=== PATIENT | female | born 1985 | race Hispanic/Latino ===

== ENCOUNTER 2023-06-09 15:59 | Emergency (ER) | payer OTHER, SELFPAY ==
[2023-06-09 16:08] VITALS: BP 147/86
[2023-06-09 16:24] LABS: Glucose - Point of Care 226 mg/dl (70-99)
[2023-06-09 16:29] LABS: % Basophils 0.5 % (0-2); % Eosinophils 7.4 % (0-6); % Immature Granulocytes 0.4 % (0-0.5); % Lymphocytes 28.3 % (20.5-51.1); % Neutrophils 56.4 % (42.2-75.2); Absolute Basophils 0.1 10^3/uL (0-0.2); Absolute Immature Granulocytes 0.1 10^3/uL (0-0.05); Absolute Lymphocytes 3.8 10^3/uL (1.2-3.4); Absolute Neutrophils 7.6 10^3/uL (1.4-6.5); Hematocrit 35.1 % (37.0-47.0); Hemoglobin 11.4 g/dL (12.0-16.0); Mean Corp Hgb Conc. 32.5 g/dL (33.0-37.0); Mean Corpuscular Hgb 25.5 pg (27.0-31.0); Mean Corpuscular Volume 78.5 fL (81.0-99.0); Mean Platelet Volume 9.7 fL (7.4-10.4); Nucleated Red Blood Cells % 0 %; Platelet Count 393 10^3/uL (130-400); Red Blood Cell Count 4.47 10^6/uL (4.20-5.40); Red Cell Dist. Width 19.5 % (11.5-14.5); White Blood Cell Count 13.5 10^3/uL (4.8-10.8)
[2023-06-09 16:57] LABS: ALT (SGPT) 29 U/L (0-35); AST (SGOT) 27 U/L (14-36); Albumin 3.4 g/dl (3.5-5.0); Alkaline Phosphatase 86 U/L (38-126); Blood Urea Nitrogen 5 mg/dl (7-17); Calcium 9.2 mg/dl (8.4-10.2); Carbon Dioxide 21 mmol/L (22-30); Chloride 104 mmol/L (98-107); Glucose 248 mg/dl (70-99); Potassium 4.1 mmol/L (3.5-5.1); Sodium 134 mmol/L (135-145); Total Bilirubin 0.3 mg/dl (0.2-1.3); Total Protein 6.4 g/dl (6.3-8.2); eGFR > 60.00
[2023-06-09 17:16] VITALS: BMI 43.3
--- NOTE | 2023-06-09 17:32 | ED.GENMED ---
History of Present Illness
General
Chief Complaint: Blood Sugar Problem
Source: patient and family
Exam Limitations: none
Time Seen by Provider: 06/09/23 16:54
Nursing documentation reviewed up to this point in time: agreed with
Travel History
Have you had any contact with someone who has COVID-19?: No
Do you have any symptoms of coronavirus? Fever > 100 degrees, chills, cough, shortness of breath, sore throat, loss of taste or smell, muscle aches, or headache?: No
History of Present Illness
History of Present Illness:
37-year-old female send pending diabetic hypertensive, fibromyalgia presents with few days of bodyaches chills cough pain into her bones, no vomiting no chest pain, nondrinker non-smoker sugars elevated today
Past History
Past History
ED Past Medical History: GERD (Gastritis, hiatal hernia), HTN, Other (Polycystic ovarian syndrome) and Other (Fibromyalgia)
ED Past Surgical History: Other (Laparoscopy)
Social History
Tobacco: Non-smoker
Alcohol: None
Drug: None
Personal:
Living: with family
Employment: Not employed
Family History
Family History: Diabetes and Other (Noncontributory)
Review of Systems
Review of Systems
All Other Systems: ROS reviewed and negative except as documented in HPI and ROS
Constitutional: Reports fatigue and chills
Respiratory: Reports cough
Cardiac: Reports no symptoms
ABD/GI: Reports no symptoms
: Reports no symptoms
Musculoskeletal: Reports joint pain, muscle pain and muscle stiffness
Skin: Reports no symptoms
Neurological: Denies dizzy
Endocrine: Reports no symptoms
Phy Exam
Physical Exam
Physical Exam:
Physical Exam
General: Nontoxic 37 female
Neck: Lips are moist
Heart: Regular
Lungs: No wheeze
Abdomen: Not tender
Neuro: alert and oriented. no focal neurological deficits
Skin: no rash
Psychiatric: well kept. interactive and cooperative
Extremities: no edema. No calf pain
Course
Orders/Labs/Results
Orders:
Orders
06/09/23 16:22
CMP [Comprehensive Metabolic Panel] Urgent
Complete Blood Count/With Diff Urgent
Creatine Phosphokinase Urgent
Comment: ADD ON
06/09/23 17:29
0.9% Sodium Chloride 1000 ml [Nss] 1,000 ml IV BOLUS
Acetaminophen [Tylenol] 1,000 mg PO NOW STA
Ketorolac [Toradol] 15 mg IV NOW STA
06/09/23 17:30
CR Chest - 2 Views Urgent
Comment:
Reason For Exam: body aches
06/09/23 17:35
Electrocardiogram (*1) Urgent
Reason for Study: Shortness of Breath
EKG- Treatment ONCE
06/09/23 17:36
Add On- LAB Urgent
Tests Added?: cpk
06/09/23 17:54
COVID-19 Antigen Urgent
Source: Nasal Swab
Influenza A+B Rapid Molecular Urgent
RJ Source: Nasal Swab
Specimen Description:
06/09/23 19:36
Bedside Glucose- Treatment ONCE
Abnormal Lab Results
06/09/23 06/09/23 06/09/23
16:22 16:23 19:40
WBC 13.5 H 10^3/uL
(4.8-10.8)
Hgb 11.4 L g/dL
(12.0-16.0)
Hct 35.1 L %
(37.0-47.0)
MCV 78.5 L fL
(81.0-99.0)
MCH 25.5 L pg
(27.0-31.0)
MCHC 32.5 L g/dL
(33.0-37.0)
RDW 19.5 H %
(11.5-14.5)
Abs Immat Gran (auto) 0.1 H 10^3/uL
(0-0.05)
Absolute Neuts (auto) 7.6 H 10^3/uL
(1.4-6.5)
Absolute Lymphs (auto) 3.8 H 10^3/uL
(1.2-3.4)
Absolute Monos (auto) 1.0 H 10^3/uL
(0.1-0.6)
Absolute Eos (auto) 1.0 H 10^3/uL
(0-0.7)
Eosinophils % 7.4 H %
(0-6)
Sodium 134 L mmol/L
(135-145)
Carbon Dioxide 21 L mmol/L
(22-30)
BUN 5 L mg/dl
(7-17)
Creatinine 0.5 L mg/dL
(0.6-1.0)
Glucose 248 H mg/dl
(70-99)
Creatine Kinase 150 H U/L
(30-135)
Albumin 3.4 L g/dl
(3.5-5.0)
POC Glucose 226 H mg/dl 100 H mg/dl
(70-99) (70-99)
06/09/23 16:22
06/09/23 16:22
Vital Signs
Initial and Last Documented VS:
Initial Vital Signs
Temp Pulse Resp BP Pulse Ox
98.9 F 104 18 147/86 99
06/09/23 16:08 06/09/23 16:08 06/09/23 16:08 06/09/23 16:08 06/09/23 16:08
Last Documented Vital Signs
Temp Pulse Resp BP Pulse Ox
98.9 F 90 18 118/74 100
06/09/23 16:08 06/09/23 18:15 06/09/23 18:15 06/09/23 18:15 06/09/23 18:15
MDM/Problems Addressed
Differential Diagnosis Includes:
Viral syndrome, fibromyalgia flare pneumonia influenza COVID DKA
MDM/Problems Addressed:
Body aches
Chronic conditions affecting care:
Fibromyalgia
Chronic conditions affecting care: DM and HTN
Acute Exacerbation and/or Progression of Chronic Illness: DM and HTN
*Radiology
Radiology exam reviewed: preliminary read by ED provider
*Pulse Oximetry
Patient hypoxic: no
*EKG
Interpreted by ED Provider?: Yes
Interpretation: abnormal
Comparison EKG: no comparison EKG present
Heart Rate: 78
Rate: normal
Rhythm: sinus
Ischemia: non-specific ST changes
*Blasting Worker Interpretation
Rate: normal
Interpretation: normal
Heart Rate: 78
Rhythm: sinus
*Critical Care Note
Total Time (30-74mins, 75-104mins- exclusive of procedures): Not Applicable
Update Note
Update Note:
7:45 PM labs noted anion gap 9 negative viral swabs chest x-ray noted report noted CPK noted
Patient states he is feeling better, no vomiting, will repeat her blood sugar
ED Attending Note
-
Portions of this chart may have been created with voice recognition software.� Occasional wrong word or��sound alike� substitutions may have occurred due to the inherent limitations of voice recognition software.
Discharge Plan
Departure
Patient Disposition: Home (Routine Discharge)
Date of Disposition: 06/09/23
Time of Disposition: 19:47
Patient with high blood pressure during this ER visit?: No
Condition: Good
Discharge Problem:
Diabetes
Instructions: Diabetes Type 1, Adult (DC)
Prescriptions:
No Action
citalopram 20 MG tablet
40 mg PO DAILY
bupropion HCl 150 MG tablet extended release 24 hr
150 mg PO DAILY
metoprolol tartrate 25 MG tablet
25 mg PO DAILY
Ferrous Gluconate
324 mg PO TID
Vitamin D3
5,000 unit PO DAILY
diclofenac sodium 75 MG tablet,delayed release (DR/EC)
50 mg PO DAILY PRN (Reason: pain)
sucralfate [Carafate] 1 GM/10 ML suspension
1 gm PO ACHS Qty: 560 1RF
Referrals:
NONE,* [Active] -
Activity Restrictions/Additional Instructions:
Drink plenty of fluids, Tylenol as needed for body aches,
Interventions
Interventions:
*Risk Screen - Suicide Last Done: 06/09/23 17:16
*General Assessment Last Done: 06/09/23 16:08
*Neglect/Abuse Screening Last Done: 06/09/23 17:16
*ED COVID-19 Vaccine History Last Done: 06/09/23 16:08
ED- Neurological Assessment Last Done: 06/09/23 17:16
[2023-06-09] MEDS: NSS 1000 IV (17:48)
[2023-06-09] MEDS: TORADOL 15 MG IV (17:48)
[2023-06-09] MEDS: TYLENOL 1000 MG PO (17:48)
[2023-06-09 18:15] VITALS: BP 118/74
[2023-06-09 18:19] LABS: COVID-19 Antigen Negative (Negative)
[2023-06-09 18:33] LABS: Creatine Phosphokinase 150 U/L (30-135)
[2023-06-09 19:41] LABS: Glucose - Point of Care 100 mg/dl (70-99)
== END 2023-06-09 20:09 | disposition home or self-care (01) ==
LOC: EMR 15:59
PROVIDERS: Emergency Medicine; EMERGENCY PHYSICIAN Emergency Medicine; FAMILY PHYSICIAN Family Medicine
DX: E11.9 Type 2 diabetes mellitus without complications (principal); I10 Essential (primary) hypertension; M79.7 Fibromyalgia; K21.9 Gastro-esophageal reflux disease without esophagitis; E28.2 Polycystic ovarian syndrome; Z83.3 Family history of diabetes mellitus; Z87.19 Personal history of other diseases of the digestive system
CPT/HCPCS: 99283; 96374; 96361; 71046; 80053; 82550; 82962; 85025; 87502; 87811; 93005

== ENCOUNTER → 2023-09-29 11:26 | Outpatient (REF) | payer OTHER, SELFPAY ==
[2023-09-29 13:13] LABS: Hepatitis B Surface Antibody Positive
== END ==
LOC: OHS 11:26
PROVIDERS: ATTENDING PHYSICIAN Nurse Practitioner Family
DX: Z23 Encounter for immunization (principal)
CPT/HCPCS: 86480; 86706; 86787

== ENCOUNTER 2024-07-08 18:03 | Emergency (ER) | payer OTHER, SELFPAY ==
[2024-07-08 18:11] VITALS: BP 140/80
[2024-07-08 18:45] LABS: % Basophils 0.6 % (0-2); % Eosinophils 2.6 % (0-6); % Immature Granulocytes 0.5 % (0-0.5); % Lymphocytes 14.1 % (20.5-51.1); % Monocytes 10.2 % (1.7-9.3); Absolute Basophils 0.1 10^3/uL (0-0.2); Absolute Eosinophils 0.3 10^3/uL (0-0.7); Absolute Immature Granulocytes 0.1 10^3/uL (0-0.05); Absolute Lymphocytes 1.4 10^3/uL (1.2-3.4); Absolute Neutrophils 7.3 10^3/uL (1.4-6.5); Hematocrit 35.2 % (37.0-47.0); Hemoglobin 11.2 g/dL (12.0-16.0); Mean Corp Hgb Conc. 31.8 g/dL (33.0-37.0); Mean Corpuscular Hgb 24.2 pg (27.0-31.0); Mean Corpuscular Volume 76.2 fL (81.0-99.0); Mean Platelet Volume 10.1 fL (7.4-10.4); Nucleated Red Blood Cells % 0 %; Platelet Count 380 10^3/uL (130-400); Red Blood Cell Count 4.62 10^6/uL (4.20-5.40); Red Cell Dist. Width 16.5 % (11.5-14.5); White Blood Cell Count 10.1 10^3/uL (4.8-10.8)
[2024-07-08 18:49] LABS: HCG, Serum Qualitative Screen Negative
[2024-07-08 18:53] LABS: COVID-19 Antigen Negative (Negative)
[2024-07-08 18:58] LABS: ALT (SGPT) 29 U/L (0-35); AST (SGOT) 27 U/L (14-36); Albumin 4.1 g/dl (3.5-5.0); Alkaline Phosphatase 91 U/L (38-126); Blood Urea Nitrogen 3 mg/dl (7-17); Calcium 9.4 mg/dl (8.4-10.2); Carbon Dioxide 22 mmol/L (22-30); Chloride 101 mmol/L (98-107); Glucose 117 mg/dl (70-99); Sodium 133 mmol/L (135-145); Total Bilirubin 0.7 mg/dl (0.2-1.3); Total Protein 7.1 g/dl (6.3-8.2); eGFR > 60.00
--- NOTE | 2024-07-08 19:59 | ED.GENMED ---
History of Present Illness
General
Chief Complaint: Fever
Source: patient
Exam Limitations: none
Time Seen by Provider: 07/08/24 19:16
Nursing documentation reviewed up to this point in time: agreed with
History of Present Illness
History of Present Illness:
Pt presents to ED secondary to 4-day history of intermittent fever, posterior headache, and body ache, along with decreased appetite. Denies sore throat. Denies coughing. Denies dizziness. Denies vomiting or diarrhea. Denies rash. Denies neck
pain. 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 Denies recent travel.
Past History
Past History
ED Past Medical History: GERD (Gastritis, hiatal hernia), HTN, Other (Polycystic ovarian syndrome) and Other (Fibromyalgia)
ED Past Surgical History: Other (Laparoscopy)
Social History
Tobacco: Non-smoker
Alcohol: None
Drug: None
Personal:
Living: with family
Employment: Not employed
Family History
Family History: Diabetes and Other (Noncontributory)
Review of Systems
Review of Systems
Allergies reviewed?: Yes
All Other Systems: ROS reviewed and negative except as documented in HPI and ROS
Constitutional: Reports fever
EENT: Reports no symptoms; Denies sore throat
Respiratory: Reports no symptoms; Denies cough or trouble breathing
Cardiac: Reports no symptoms
ABD/GI: Reports no symptoms; Denies abdominal pain, vomiting or diarrhea
Musculoskeletal: Reports muscle pain
Skin: Reports no symptoms
Neurological: Reports headache
Phy Exam
Physical Exam
Physical Exam:
Physical Exam
General: no apparent distress, not acutely ill. afebrile
Head: nc/at. eomi
Neck: supple. no meningeal signs. normal posterior pharynx
Heart: s1/s2 regular rate and rhythm
Lungs: no acute respiratory distress. clear bilaterally
Abdomen: normal bowel sounds. not tender.
Neuro: alert and oriented x 3. no focal neurological deficits
Skin: no rash
Psychiatric: well kept. interactive and cooperative
Extremities: no edema. no calf tenderness.
Course
Orders/Labs/Results
Orders:
Orders
07/08/24 18:14
Test Result ONCE
07/08/24 18:24
COVID-19 Antigen Urgent
Source: Nasal Swab
Complete Blood Count/With Diff Urgent
Comprehensive Metabolic Panel Urgent
HCG, Serum Qualitative Screen Urgent
Influenza A+B Rapid Molecular Urgent
JR Source: Nasal Swab
Specimen Description:
07/08/24 19:59
Oseltamivir Phosphate [Tamiflu] 75 mg PO NOW STA
Abnormal Lab Results
07/08/24
18:24
Hgb 11.2 L g/dL
(12.0-16.0)
Hct 35.2 L %
(37.0-47.0)
MCV 76.2 L fL
(81.0-99.0)
MCH 24.2 L pg
(27.0-31.0)
MCHC 31.8 L g/dL
(33.0-37.0)
RDW 16.5 H %
(11.5-14.5)
Abs Immat Gran (auto) 0.1 H 10^3/uL
(0-0.05)
Absolute Neuts (auto) 7.3 H 10^3/uL
(1.4-6.5)
Absolute Monos (auto) 1.0 H 10^3/uL
(0.1-0.6)
Lymphocytes % 14.1 L %
(20.5-51.1)
Monocytes % 10.2 H %
(1.7-9.3)
Sodium 133 L mmol/L
(135-145)
BUN 3 L mg/dl
(7-17)
Glucose 117 H mg/dl
(70-99)
07/08/24 18:24
07/08/24 18:24
Vital Signs
Initial and Last Documented VS:
Initial Vital Signs
Temp Pulse Resp BP Pulse Ox
98.4 F 105 18 140/80 97
07/08/24 18:11 07/08/24 18:11 07/08/24 18:11 07/08/24 18:11 07/08/24 18:11
Last Documented Vital Signs
Temp Pulse Resp BP Pulse Ox
98.3 F 96 18 122/81 97
07/08/24 20:45 07/08/24 20:45 07/08/24 20:45 07/08/24 20:45 07/08/24 20:45
MDM/Problems Addressed
MDM/Problems Addressed:
History and exam, along with nasal swab consistent with symptoms secondary to influenza. As patient states that her symptoms have worsened overall, along with history of diabetes, after discussion of potential side effects, decision made to start
the patient on Tamiflu, along with PCP follow-up as an outpatient. Patient otherwise is afebrile, hemodynamically stable, neurologically intact, and without significant distress, at time of discharge, to the care of her family
*Critical Care Note
Total Time (30-74mins, 75-104mins- exclusive of procedures): Not Applicable
ED Attending Note
-
Portions of this chart may have been created with voice recognition software.� Occasional wrong word or��sound alike� substitutions may have occurred due to the inherent limitations of voice recognition software.
Discharge Plan
Departure
Patient Disposition: Home (Routine Discharge)
Date of Disposition: 07/08/24
Time of Disposition: 19:59
Patient with high blood pressure during this ER visit?: Yes
Condition: Fair
Discharge Problem:
Influenza
Instructions: Flu in adults - Discharge instructions, Flu in adults - ED discharge instructions
Prescriptions:
New
oseltamivir [Tamiflu] 75 mg capsule
75 mg PO BID 5 Days Qty: 9 0RF
No Action
citalopram 20 MG tablet
40 mg PO DAILY
bupropion HCl 150 MG tablet extended release 24 hr
150 mg PO DAILY
metoprolol tartrate 25 MG tablet
25 mg PO DAILY
Ferrous Gluconate
324 mg PO TID
Vitamin D3
5,000 unit PO DAILY
diclofenac sodium 75 MG tablet,delayed release (DR/EC)
50 mg PO DAILY PRN (Reason: pain)
sucralfate [Carafate] 1 GM/10 ML suspension
1 gm PO ACHS Qty: 560 1RF
Stand Alone Forms: Return to Work
Activity Restrictions/Additional Instructions:
As discussed, please follow-up with your primary care physician for reevaluation. Your prescription has been sent electronically to [facility] pharmacy in [place].
Interventions
Interventions:
*Risk Screen - Suicide Last Done: 07/08/24 18:14
*General Assessment Last Done: 07/08/24 18:14
*Neglect/Abuse Screening Last Done: 07/08/24 18:14
*Nursing Disposition Last Done: 07/08/24 20:45
ED- Neurological Assessment Last Done: 07/08/24 20:45
ED-Skin Assessment Last Done: 07/08/24 20:45
Discharge Date and Time
Discharge Date/Time: 07/08/24 20:47
Print Language: CROATIAN
[2024-07-08] MEDS: TAMIFLU 75 MG PO (20:34)
[2024-07-08 20:45] VITALS: BP 122/81
== END 2024-07-08 20:47 | disposition home or self-care (01) ==
LOC: EMR 18:03
PROVIDERS: EMERGENCY PHYSICIAN Emergency Medicine; FAMILY PHYSICIAN Internal Medicine
DX: J10.1 Influenza due to other identified influenza virus with other respiratory manifestations (principal); I10 Essential (primary) hypertension; Z11.52 Encounter for screening for COVID-19
CPT/HCPCS: 99283; 80053; 84703; 85025; 87502; 87811

== ENCOUNTER 2024-10-02 18:02 | Emergency (ER) | payer OTHER, SELFPAY ==
[2024-10-02] VITALS (8 sets, daily range): BP systolic 114–144; BP diastolic 73–86; PULSE 100–116
[2024-10-02 18:23] LABS: % Basophils 0.5 % (0-2); % Eosinophils 4.2 % (0-6); % Immature Granulocytes 0.4 % (0-0.5); % Lymphocytes 19.7 % (20.5-51.1); % Monocytes 4.9 % (1.7-9.3); % Neutrophils 70.3 % (42.2-75.2); Absolute Basophils 0.1 10^3/uL (0-0.2); Absolute Eosinophils 0.7 10^3/uL (0-0.7); Absolute Immature Granulocytes 0.1 10^3/uL (0-0.05); Absolute Lymphocytes 3.4 10^3/uL (1.2-3.4); Absolute Monocytes 0.9 10^3/uL (0.1-0.6); Absolute Neutrophils 12.2 10^3/uL (1.4-6.5); Hematocrit 31.6 % (37.0-47.0); Mean Corp Hgb Conc. 31.6 g/dL (33.0-37.0); Mean Corpuscular Hgb 23.1 pg (27.0-31.0); Mean Platelet Volume 9.4 fL (7.4-10.4); Nucleated Red Blood Cells % 0 %; Platelet Count 434 10^3/uL (130-400); Red Blood Cell Count 4.33 10^6/uL (4.20-5.40); Red Cell Dist. Width 17.6 % (11.5-14.5); White Blood Cell Count 17.4 10^3/uL (4.8-10.8)
[2024-10-02 18:32] LABS: HCG, Serum Qualitative Screen Negative
[2024-10-02 18:36] LABS: ALT (SGPT) 21 U/L (0-35); AST (SGOT) 18 U/L (14-36); Albumin 3.7 g/dl (3.5-5.0); Alkaline Phosphatase 84 U/L (38-126); Blood Urea Nitrogen 6 mg/dl (7-17); Calcium 9.2 mg/dl (8.4-10.2); Carbon Dioxide 22 mmol/L (22-30); Chloride 112 mmol/L (98-107); Glucose 154 mg/dl (70-99); Potassium 3.5 mmol/L (3.5-5.1); Sodium 139 mmol/L (135-145); Total Bilirubin 0.5 mg/dl (0.2-1.3); Total Protein 6.7 g/dl (6.3-8.2); eGFR > 60.00
[2024-10-02 18:47] LABS: Troponin I < 0.012 ng/ml
--- NOTE | 2024-10-02 18:49 | ED.GENMED ---
History of Present Illness
<NOEL Delacurz - Last Filed: 10/02/24 22:00>
General
Chief Complaint: Fainting/Passed Out
Source: patient and family
Time Seen by Provider: 10/02/24 18:19
History of Present Illness
History of Present Illness:
This is a 38 y/o F with a PMH of T2DM diabetes, HTN and dysfunctional uterine bleeding who presents via EMS due to syncope x 1 hour. She reports being at her daughter's graduation where she was outside and standing for about 3 hours when she felt
lightheaded, got tunnel vision, nauseous and then syncopized. She reports eating and drinking well earlier in the day. She's had heavy menstrual bleeding x 2 weeks for which she sees PRODUCT MARKETING COORDINATOR. She was prescribed medication but due to it being expensive,
she is not taking it. She took her metoprolol this morning. She does not check her BP at home regularly. She denies fevers, chest pain, palpitations, vomiting, slurred speech, paraesthesias.
She denies a PMH of arrhythmia, CVA, PE, hypotension. She had uterine biopsy a few days ago, otherwise no recent surgeries. Denies travel history or prolonged immobilization. Denies sick contacts. Denies tobacco, alcohol or drug use.
Past History
<NOEL Delacruz - Last Filed: 10/02/24 22:00>
Past History
ED Past Medical History: GERD (Gastritis, hiatal hernia), HTN, Other (Polycystic ovarian syndrome) and Other (Fibromyalgia)
ED Past Surgical History: Other (Laparoscopy)
Social History
Tobacco: Non-smoker
Alcohol: None
Drug: None
Personal:
Living: with family
Employment: Not employed
Family History
Family History: Diabetes and Other (Noncontributory)
Review of Systems
<NOEL Delacruz - Last Filed: 10/02/24 22:00>
Review of Systems
Constitutional: Reports no symptoms
EENT: Reports no symptoms
Respiratory: Reports no symptoms
Cardiac: Reports no symptoms
ABD/GI: Reports no symptoms
: Reports no symptoms
Neurological: Reports dizzy
Phy Exam
<ST NubiaCO - Last Filed: 10/02/24 22:00>
General Physical Exam
General Presentation: no apparent distress
General age: appears stated age
General Skin: warm
General Habitus: obese
General Mental: other (sleepy)
ENT Exam
ENT Exam: EOMI
Eye Exam
Eye Exam: EOMI
Cardiovascular Exam
Cardiovascular Exam: normal peripheral pulses and tachycardia
Pulmonary Exam
Pulmonary Exam: lungs clear and no respiratory distress
Course
<Veronique Bender [facility] - Last Filed: 10/02/24 22:00>
Orders/Labs/Results
Orders:
Orders
10/02/24 18:11
Electrocardiogram (*1) Urgent
Reason for Study: Syncope
EKG- Treatment ONCE
Test Result ONCE
10/02/24 18:16
Type+Screen Urgent
Complete Blood Count/With Diff Urgent
Comprehensive Metabolic Panel Urgent
HCG, Serum Qualitative Screen Urgent
Troponin I Urgent
10/02/24 19:36
Orthostatic VS- Treatment ONCE
10/02/24 19:37
0.9% Sodium Chloride 500 ml [Nss] 500 ml IV BOLUS
10/02/24 20:32
0.9% Sodium Chloride 1000 ml [Nss] 1,000 ml IV BOLUS
Abnormal Lab Results
10/02/24
18:16
WBC 17.4 H 10^3/uL
(4.8-10.8)
Hgb 10.0 L g/dL
(12.0-16.0)
Hct 31.6 L %
(37.0-47.0)
MCV 73.0 L fL
(81.0-99.0)
MCH 23.1 L pg
(27.0-31.0)
MCHC 31.6 L g/dL
(33.0-37.0)
RDW 17.6 H %
(11.5-14.5)
Plt Count 434 H 10^3/uL
(130-400)
Abs Immat Gran (auto) 0.1 H 10^3/uL
(0-0.05)
Absolute Neuts (auto) 12.2 H 10^3/uL
(1.4-6.5)
Absolute Monos (auto) 0.9 H 10^3/uL
(0.1-0.6)
Lymphocytes % 19.7 L %
(20.5-51.1)
Chloride 112 H mmol/L
(98-107)
BUN 6 L mg/dl
(7-17)
Glucose 154 H mg/dl
(70-99)
10/02/24 18:16
10/02/24 18:16
Vital Signs
Initial and Last Documented VS:
Initial Vital Signs
Temp Pulse Resp BP Pulse Ox
98.2 F 99 16 128/74 100
10/02/24 18:12 10/02/24 18:12 10/02/24 18:12 10/02/24 18:12 10/02/24 18:12
Last Documented Vital Signs
Temp Pulse Resp BP Pulse Ox
98.2 F 109 17 114/73 100
10/02/24 18:12 10/02/24 21:15 10/02/24 21:15 10/02/24 21:00 10/02/24 21:15
<Faraz Dominguez MD - Last Filed: 10/03/24 19:06>
Orders/Labs/Results
Orders:
Orders
10/02/24 18:11
Electrocardiogram (*1) Urgent
Reason for Study: Syncope
EKG- Treatment ONCE
Test Result ONCE
10/02/24 18:16
Type+Screen Urgent
Complete Blood Count/With Diff Urgent
Comprehensive Metabolic Panel Urgent
HCG, Serum Qualitative Screen Urgent
Troponin I Urgent
10/02/24 19:36
Orthostatic VS- Treatment ONCE
10/02/24 19:37
0.9% Sodium Chloride 500 ml [Nss] 500 ml IV BOLUS
10/02/24 20:32
0.9% Sodium Chloride 1000 ml [Nss] 1,000 ml IV BOLUS
Abnormal Lab Results
10/02/24
18:16
WBC 17.4 H 10^3/uL
(4.8-10.8)
Hgb 10.0 L g/dL
(12.0-16.0)
Hct 31.6 L %
(37.0-47.0)
MCV 73.0 L fL
(81.0-99.0)
MCH 23.1 L pg
(27.0-31.0)
MCHC 31.6 L g/dL
(33.0-37.0)
RDW 17.6 H %
(11.5-14.5)
Plt Count 434 H 10^3/uL
(130-400)
Abs Immat Gran (auto) 0.1 H 10^3/uL
(0-0.05)
Absolute Neuts (auto) 12.2 H 10^3/uL
(1.4-6.5)
Absolute Monos (auto) 0.9 H 10^3/uL
(0.1-0.6)
Lymphocytes % 19.7 L %
(20.5-51.1)
Chloride 112 H mmol/L
(98-107)
BUN 6 L mg/dl
(7-17)
Glucose 154 H mg/dl
(70-99)
10/02/24 18:16
10/02/24 18:16
Vital Signs
Initial and Last Documented VS:
Initial Vital Signs
Temp Pulse Resp BP Pulse Ox
98.2 F 99 16 128/74 100
10/02/24 18:12 10/02/24 18:12 10/02/24 18:12 10/02/24 18:12 10/02/24 18:12
Last Documented Vital Signs
Temp Pulse Resp BP Pulse Ox
98.2 F 109 17 114/73 100
10/02/24 18:12 10/02/24 21:15 10/02/24 21:15 10/02/24 21:00 10/02/24 21:15
<NOEL Delacruz - Last Filed: 10/02/24 22:00>
MDM/Problems Addressed
Differential Diagnosis Includes:
Arrhythmogenic vs PE vs vasovagal syncope
MDM/Problems Addressed:
This is a 38 y/o F with a PMH of T2DM diabetes, HTN and dysfunctional uterine bleeding who presents via EMS due to syncope x 1 hour. Reports heavy menstrual bleeding, more than usual. Patient afebrile and tachycardic. No PE risk factors. Lungs
clear, no lower extremity edema. ECG revealing sinus tachycardia. Given IV fluids and felt better. History and physical consistent with vasovagal syncope likely from volume depletion. Patient currently hemodynamically stable, neurologically intact
and in no acute distress. She is stable for discharge.
<NOEL Delacruz - Last Filed: 10/02/24 22:00>
*Critical Care Note
Total Time (30-74mins, 75-104mins- exclusive of procedures): Not Applicable
<Faraz Dominguez MD - Last Filed: 10/03/24 19:06>
*Pulse Oximetry
Patient hypoxic: no
*EKG
Interpreted by ED Provider?: Yes
EKG Intrepretation Date: 10/02/24
Heart Rate: 106
Rate: tachycardiac
Rhythm: sinus
[place]: normal axis
Interval: normal interval
ED Attending Note
<NOEL Delacruz - Last Filed: 10/02/24 22:00>
-
Portions of this chart may have been created with voice recognition software.� Occasional wrong word or��sound alike� substitutions may have occurred due to the inherent limitations of voice recognition software.
<Faraz Dominguez MD - Last Filed: 10/03/24 19:06>
ED Attending Note
Patient seen and examined by attending physician: Yes
ED Attending Note:
Patient with history of hypertension and diabetes, presents to ED secondary to witnessed syncopal episode, while attending her daughter's graduation outdoors. Patient states that she was at her baseline health this morning and had lunch as well,
prior to attending the graduation. Graduation was held outdoors, where he was noted to be hot and humid. Patient was standing for approximately 2 hours, when she felt lightheaded and nauseous. Despite having bottled water, patient reports having
sweated quite a bit, due to humidity. Patient told her mother that she was not feeling well. She was assisted to nearby chair, where she was noted to lose consciousness for 'seconds'. 911 was dispatched to the scene and patient was brought to ED
subsequently for an evaluation. Denies previous history of similar symptoms. Denies chest pain or palpitations. Denies recent illness. Denies recent change in medications or diet. Denies recent travel or surgery. Denies of leg pain or
swelling. Denies family history of heart disease or blood clots. In addition, patient does report heavy menstrual period for the past 2 weeks, more than usual. Patient has already spoken with her PRODUCT MARKETING COORDINATOR physician and was prescribed 'medication',
which has not been filled due to cost.
Physical Exam
General: no apparent distress, not acutely ill. afebrile
Head: nc/at. eomi
Neck: supple. no meningeal signs.
Heart: tachycardic. no murmur
Lungs: no acute respiratory distress. clear bilaterally
Abdomen: normal bowel sounds. not tender.
Neuro: alert and oriented x 3. no focal neurological deficits
Skin: no rash
Psychiatric: well kept. interactive and cooperative
Extremities: no edema. no calf tenderness.
History and exam consistent with likely vasovagal syncope, likely circumstantial with likely volume depletion due to heavy menstrual period. Patient otherwise remains afebrile, hemodynamically stable, and neurologically intact, without any distress
during observation ED. Orthostatic vital signs noted. Patient given IV fluids. Initial tachycardia sig. improved after IVF administration, Pt will be discharged home to the care of her mother, with recommendation to follow up with her PMD as well
as banquet houseperson physician for re-evaluation, zaid in light of ongoing vaginal bleed
Discharge Plan
Departure
Patient Disposition: Home (Routine Discharge)
Patient with high blood pressure during this ER visit?: Yes
Discharge Problem:
Syncope, vasovagal
Instructions: Vasovagal Response (DC)
Prescriptions:
No Action
citalopram 20 MG tablet
40 mg PO DAILY
bupropion HCl 150 MG tablet extended release 24 hr
150 mg PO DAILY
metoprolol tartrate 25 MG tablet
25 mg PO DAILY
Ferrous Gluconate
324 mg PO TID
Vitamin D3
5,000 unit PO DAILY
diclofenac sodium 75 MG tablet,delayed release (DR/EC)
50 mg PO DAILY PRN (Reason: pain)
sucralfate [Carafate] 1 GM/10 ML suspension
1 gm PO ACHS Qty: 560 1RF
oseltamivir [Tamiflu] 75 mg capsule
75 mg PO BID 5 Days Qty: 9 0RF
Referrals:
Erlin Arce MD [Family Provider, Family Practice]
Activity Restrictions/Additional Instructions:
As discussed, please follow-up with your primary care physician for reevaluation. In the meantime, do recommend rest along with increased fluid intake at home.
Interventions
Interventions:
*Risk Screen - Suicide Last Done: 10/02/24 18:14
*General Assessment Last Done: 10/02/24 18:14
*Neglect/Abuse Screening Last Done: 10/02/24 18:14
*ED- Fall Risk Assessment Last Done: 10/02/24 18:14
*ED COVID-19 Vaccine History Last Done: 10/02/24 18:14
*Nursing Disposition Last Done: 10/02/24 21:31
ED- Cardiac Assessment Last Done: 10/02/24 18:14
ED- Neurological Assessment Last Done: 10/02/24 18:14
Discharge Date and Time
Discharge Date/Time: 10/02/24 21:32
Print Language: PORTUGUESE
[2024-10-02] MEDS: NSS 500 IV (19:53)
[2024-10-02] MEDS: NSS 1000 IV (20:40)
== END 2024-10-02 21:32 | disposition home or self-care (01) ==
LOC: EMR 18:02
PROVIDERS: EMERGENCY PHYSICIAN Emergency Medicine; FAMILY PHYSICIAN Family Medicine
DX: R55 Syncope and collapse (principal); E11.9 Type 2 diabetes mellitus without complications; I10 Essential (primary) hypertension; R00.0 Tachycardia, unspecified; M79.7 Fibromyalgia; E28.2 Polycystic ovarian syndrome
CPT/HCPCS: 99284; 96360; 96361; 80053; 84484; 84703; 85025; 86850; 86900; 86901; 93005

== ENCOUNTER 2024-11-12 14:45 | Emergency (ER) | payer OTHER, SELFPAY ==
[2024-11-12 14:53] VITALS: BP 128/74
[2024-11-12 14:54] VITALS: BP 128/74
[2024-11-12 14:58] LABS: Glucose - Point of Care 101 mg/dl (70-99)
[2024-11-12 15:00] VITALS: BP 136/75
[2024-11-12 15:11] VITALS: BP 139/75
--- NOTE | 2024-11-12 15:22 | ED.GENMED ---
Addendum entered and electronically signed by Shad Bah PA-C 11/14/24 09:04:
Urine culture in preliminary status with E. coli. Pending sensitivities. Patient on antibiotics.
Original Note:
History of Present Illness
General
Chief Complaint: Unresponsive
Time Seen by Provider: 11/12/24 15:22
History of Present Illness
History of Present Illness:
TIME OF INITIAL EVALUATION
- 3:22 PM
REVIEW OF OLD RECORDS
- The patient has a history of fibromyalgia, high blood pressure, hyperlipidemia, GERD, IDDM, schizophrenia
Note:
CHIEF COMPLAINT(S)
Hematuria and left-sided back pain.
HISTORY OF PRESENT ILLNESS
The patient is a 39-year-old female who presented to the emergency department with complaints of hematuria and left-sided back pain. The symptoms began this morning when the patient noticed blood in her urine while using the bathroom. She described
the pain as localized to the left side of her back. There is no known history of kidney stones or similar episodes in the past. The patient experienced significant pain, which led to a syncopal episode.
Currently, the patient reports feeling better post-episode but mentions the presence of blood clots in her urine. During the examination, it was noted that her vital signs were stable, with a normal heart rate in the 80s, normal oxygen saturation,
and normal blood pressure. Palpation of the abdomen elicited tenderness. The plan includes imaging and further diagnostic tests to evaluate the source of the symptoms.
PHYSICAL EXAM
General: Alert, no acute distress noted.
Skin: Warm, dry.
Head: Normocephalic, atraumatic.
Neck: Supple, trachea midline.
Eye Ears, nose, mouth and throat: Oral mucosa moist.
Cardiovascular: Normal peripheral perfusion, No edema.
Respiratory: Respirations are non-labored.
Gastrointestinal: Mild diffuse abdominal tenderness diffusely but no peritoneal signs
Back: Normal range of motion, Normal alignment.
Musculoskeletal: Normal range of motion, normal strength.
Neurological: Alert and oriented to person, place, time, and situation, No focal neurological deficit observed.
Psychiatric: Cooperative, appropriate mood & affect.
PLAN
1. Conduct a Computed Tomography (CT) scan of the abdomen to rule out any serious underlying conditions.
2. Administer a dose of Toradol for pain management.
3. Provide antiemetic medication for nausea.
4. Await results from blood tests and urine sample analysis.
DIFFERENTIAL DIAGNOSIS
The Differential Diagnosis includes, in no particular order and is not limited to:
1. Nephrolithiasis (Kidney Stones)
2. Urinary Tract Infection (UTI)
3. Hematuria secondary to trauma
4. Renal Cell Carcinoma
5. Pyelonephritis
6. Bladder Calculi
7. Acute Cystitis
8. Renal Vein Thrombosis
9. Glomerulonephritis
10. Trauma to the ureter or kidney
RADIOLOGY
- CT imaging shows no ureteral stone, some questionable bladder wall thickening noted
EKG
- Sinus 80, rightward axis deviation
LABS
- White count of 20.1 which may be related to pain. She is afebrile and she is cardiac. Very low suspicion for sepsis.
UPDATE
-SUMMARY OF ENCOUNTER
The patient, a 39-year-old female, presented to the emergency department with hematuria and left-sided back pain. Upon evaluation, her vitals were stable, and a CT scan did not identify kidney stones. However, blood tests showed elevated white blood
cell counts, indicating a possible infection. Despite initial concern regarding her elevated white count, historical data confirmed that it was frequently high, reducing immediate concern. Given her symptoms and lab findings, a decision was made to
treat her for a possible urinary or kidney infection.
EMERGENCY TREATMENTS ADMINISTERED
A dose of ciprofloxacin was provided in the emergency department, and the patient was prescribed a course of ciprofloxacin for a week.
PLAN
The patient will start ciprofloxacin for suspected urinary or kidney tract infection.
MEDICATION RECONCILIATION
The patient was given a dose of ciprofloxacin in the emergency department and a prescription for a one-week course of ciprofloxacin.
MEDICAL DECISION MAKING
-Complexity of Data Reviewed:
Differential Diagnosis included nephrolithiasis, urinary tract infection, hematuria secondary to trauma, renal cell carcinoma, pyelonephritis, bladder calculi, acute cystitis, renal vein thrombosis, glomerulonephritis, trauma to the ureter or kidney.
-Data:
Category 1
The decision was made to treat with antibiotics based on elevated white blood cell count and the patients history.
-Risk:
Prescription medication was prescribed: ciprofloxacin for suspected infection.
DIAGNOSIS
1. Urinary tract infection (UTI) - ICD-10: N39.0
2. Hematuria - ICD-10: R31.9
I have also given her contact information for urologist.
Past History
Past History
ED Past Medical History: GERD (Gastritis, hiatal hernia), HTN, Other (Polycystic ovarian syndrome) and Other (Fibromyalgia)
ED Past Surgical History: Other (Laparoscopy)
Social History
Tobacco: Non-smoker
Alcohol: None
Drug: None
Personal:
Living: with family
Employment: Not employed
Family History
Family History: Diabetes and Other (Noncontributory)
Phy Exam
Physical Exam
Physical Exam:
See HPI
Course
Orders/Labs/Results
Orders:
Orders
11/12/24 15:03
EKG [Electrocardiogram (*1)] Urgent
Reason for Study: Syncope
EKG- Treatment ONCE
11/12/24 15:09
Test Result ONCE
11/12/24 15:10
CBC/With Diff [Complete Blood Count/With Diff] Urgent
CMP [Comprehensive Metabolic Panel] Urgent
HCG, Serum Qualitative Screen Urgent
11/12/24 15:30
CT Abd/pel Without Iv Or Oral Urgent
Comment:
Reason For Exam: gross hematuria, left back pain
Ketorolac [Toradol] 15 mg IV NOW STA
Ondansetron Injectable [Zofran] 4 mg IV NOW STA
11/12/24 15:32
0.9% Sodium Chloride 1000 ml [Nss] 1,000 ml IV BOLUS
11/12/24 15:56
Fentanyl Citrate/Pf [Sublimaze] 100 mcg .ROUTE .STK-MED ONE
Midazolam HCl [Versed] 2 mg .ROUTE .STK-MED ONE
11/12/24 16:15
Urinalysis Reflex To Culture Urgent
Date Specimen was Collected: 11/12/24
Time Specimen was Collected: 16:12
Urine Microscopic Reflex Cult Urgent
Urine Culture Urgent
JR Source: U
Specimen Description:
Date Specimen was Collected: 11/12/24
Time Specimen was Collected: 16:12
11/12/24 18:19
Ciprofloxacin HCl [Cipro] 500 mg PO NOW STA
Abnormal Lab Results
11/12/24 11/12/24 11/12/24
14:57 15:10 16:15
WBC 20.1 H 10^3/uL
(4.8-10.8)
Hgb 10.6 L g/dL
(12.0-16.0)
Hct 34.6 L %
(37.0-47.0)
MCV 73.0 L fL
(81.0-99.0)
MCH 22.4 L pg
(27.0-31.0)
MCHC 30.6 L g/dL
(33.0-37.0)
RDW 17.9 H %
(11.5-14.5)
Plt Count 469 H 10^3/uL
(130-400)
Abs Immat Gran (auto) 0.1 H 10^3/uL
(0-0.05)
Absolute Neuts (auto) 16.9 H 10^3/uL
(1.4-6.5)
Absolute Monos (auto) 1.0 H 10^3/uL
(0.1-0.6)
Immature Gran % 0.6 H %
(0-0.5)
Neutrophils % 84.1 H %
(42.2-75.2)
Lymphocytes % 9.4 L %
(20.5-51.1)
Chloride 108 H mmol/L
(98-107)
BUN 4 L mg/dl
(7-17)
Glucose 122 H mg/dl
(70-99)
Urine Ketones 1+ A
(Negative)
Ur Occult Blood Reflex 4+ A
(Negative)
Urine Nitrite (Reflex) Positive A
(Negative)
Leukocyte Esterase Rfl 3+ A
(Negative)
Urine RBC >100 A /HPF
(0-2)
Urine WBC (Reflex) 60-70 A /HPF
(0-5)
Urine Bacteria (Reflex) Few A
(Negative)
Urine Albumin (Reflex) 3+ A
(Neg - Trace)
POC Glucose 101 H mg/dl
(70-99)
11/12/24 15:10
11/12/24 15:10
Vital Signs
Initial and Last Documented VS:
Initial Vital Signs
Temp Pulse Resp BP Pulse Ox
36.9 C 85 18 128/74 100
11/12/24 14:53 11/12/24 14:53 11/12/24 14:53 11/12/24 14:53 11/12/24 14:53
Last Documented Vital Signs
Temp Pulse Resp BP Pulse Ox
36.9 C 85 18 128/74 100
11/12/24 14:53 11/12/24 14:53 11/12/24 14:53 11/12/24 14:53 11/12/24 15:23
*Pulse Oximetry
SaO2: 100
Oxygen Mode of Delivery: Room air
Patient hypoxic: no
*Critical Care Note
Total Time (30-74mins, 75-104mins- exclusive of procedures): Not Applicable
ED Attending Note
-
Portions of this chart may have been created with voice recognition software.� Occasional wrong word or��sound alike� substitutions may have occurred due to the inherent limitations of voice recognition software.
Discharge Plan
Departure
Prescriptions:
No Action
citalopram 20 MG tablet
40 mg PO DAILY
bupropion HCl 150 MG tablet extended release 24 hr
150 mg PO DAILY
metoprolol tartrate 25 MG tablet
25 mg PO DAILY
Ferrous Gluconate
324 mg PO TID
Vitamin D3
5,000 unit PO DAILY
diclofenac sodium 75 MG tablet,delayed release (DR/EC)
50 mg PO DAILY PRN (Reason: pain)
sucralfate [Carafate] 1 GM/10 ML suspension
1 gm PO ACHS Qty: 560 1RF
oseltamivir [Tamiflu] 75 mg capsule
75 mg PO BID 5 Days Qty: 9 0RF
Referrals:
UNKNOWN - PT NOT,INTERVIEWE [Family Provider]
Interventions
Interventions:
*Risk Screen - Suicide Last Done: 11/12/24 14:53
*General Assessment Last Done: 11/12/24 14:53
*Neglect/Abuse Screening Last Done: 11/12/24 14:53
*ED- Fall Risk Assessment Last Done: 11/12/24 14:53
*ED COVID-19 Vaccine History Last Done: 11/12/24 14:53
Discharge Date and Time
Print Language: ANGOLAN
[2024-11-12 15:24] LABS: Hematocrit 34.6 % (37.0-47.0); Hemoglobin 10.6 g/dL (12.0-16.0); Mean Corp Hgb Conc. 30.6 g/dL (33.0-37.0); Mean Corpuscular Volume 73.0 fL (81.0-99.0); Nucleated Red Blood Cells % 0 %; Red Cell Dist. Width 17.9 % (11.5-14.5)
[2024-11-12 15:39] LABS: HCG, Serum Qualitative Screen Negative
[2024-11-12 15:45] LABS: Platelet Count 469 10^3/uL (130-400)
[2024-11-12 15:48] LABS: ALT (SGPT) 19 U/L (0-35); AST (SGOT) 18 U/L (14-36); Albumin 4.1 g/dl (3.5-5.0); Alkaline Phosphatase 90 U/L (38-126); Blood Urea Nitrogen 4 mg/dl (7-17); Calcium 9.4 mg/dl (8.4-10.2); Carbon Dioxide 23 mmol/L (22-30); Chloride 108 mmol/L (98-107); Estimated Creatinine Clearance > 125 ml/min; Glucose 122 mg/dl (70-99); Potassium 3.5 mmol/L (3.5-5.1); Sodium 138 mmol/L (135-145); Total Protein 7.3 g/dl (6.3-8.2); eGFR > 60.00
[2024-11-12] MEDS: TORADOL 15 MG IV (15:59)
[2024-11-12] MEDS: ZOFRAN 4 MG IV (15:59)
[2024-11-12] MEDS: NSS 1000 IV (15:59)
[2024-11-12 16:00] VITALS: BP 142/80
[2024-11-12 16:30] LABS: Urine Character Slightly Cloudy (Clear)
[2024-11-12 16:48] LABS: Urine Squamous Cell 0-2 /LPF (Few)
[2024-11-12 16:49] LABS: Urine Red Blood Cell >100 /HPF (0-2); Urine White Cell 60-70 /HPF (0-5)
[2024-11-12 17:00] VITALS: BP 130/69
[2024-11-12] MEDS: CIPRO 500 MG PO (18:53)
== END 2024-11-12 19:13 | disposition home or self-care (01) ==
LOC: EMR 14:45
PROVIDERS: Emergency Medicine; EMERGENCY PHYSICIAN Emergency Medicine
DX: N30.90 Cystitis, unspecified without hematuria (principal); M79.7 Fibromyalgia; I10 Essential (primary) hypertension; E78.00 Pure hypercholesterolemia, unspecified; K21.9 Gastro-esophageal reflux disease without esophagitis; E11.9 Type 2 diabetes mellitus without complications; E28.2 Polycystic ovarian syndrome; F20.9 Schizophrenia, unspecified; Z83.3 Family history of diabetes mellitus; Z87.19 Personal history of other diseases of the digestive system
CPT/HCPCS: 99284; 96374; 96375; 96361; 74176; 80053; 81003; 81015; 82962; 84703; 85025; 87077; 87086; 93005

== ENCOUNTER 2025-03-12 16:21 | Emergency (ER) | payer SELFPAY ==
[2025-03-12] VITALS (14 sets, daily range): BP systolic 119–148; BP diastolic 70–87; BMI 29.8
[2025-03-12 17:20] LABS: Hematocrit 33.2 % (37.0-47.0); Hemoglobin 10.0 g/dL (12.0-16.0); Mean Corp Hgb Conc. 30.1 g/dL (33.0-37.0); Mean Corpuscular Volume 70.0 fL (81.0-99.0); Nucleated Red Blood Cells % 0 %; Platelet Count 444 10^3/uL (130-400); Red Cell Dist. Width 19.5 % (11.5-14.5)
[2025-03-12 17:30] LABS: HCG, Serum Qualitative Screen Negative
[2025-03-12 17:36] LABS: ALT (SGPT) 22 U/L (0-35); AST (SGOT) 20 U/L (14-36); Albumin 3.8 g/dl (3.5-5.0); Alkaline Phosphatase 81 U/L (38-126); Blood Urea Nitrogen 4 mg/dl (7-17); Calcium 9.3 mg/dl (8.4-10.2); Carbon Dioxide 25 mmol/L (22-30); Chloride 106 mmol/L (98-107); Estimated Creatinine Clearance > 125 ml/min; Glucose 141 mg/dl (70-99); Potassium 3.7 mmol/L (3.5-5.1); Sodium 135 mmol/L (135-145); Total Protein 7.0 g/dl (6.3-8.2); eGFR > 60.00
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
[2025-03-12] MEDS: ATIVAN 1 MG PO (19:14)
== END 2025-03-12 19:54 | disposition home or self-care (01) ==
LOC: EMR 16:21
PROVIDERS: EMERGENCY PHYSICIAN Student in an Organized Health Care Education/Training Program; FAMILY PHYSICIAN Family Medicine
DX: R55 Syncope and collapse (principal); F43.9 Reaction to severe stress, unspecified; I10 Essential (primary) hypertension; M79.7 Fibromyalgia; Z59.869 Financial insecurity, unspecified; E28.2 Polycystic ovarian syndrome
CPT/HCPCS: 99284; 80053; 84703; 85025; 93005

== ENCOUNTER → 2025-03-13 10:22 | Outpatient (REF) | payer BC, SELFPAY ==
[2025-03-13 11:22] LABS: Hematocrit 34.5 % (37.0-47.0); Hemoglobin 10.6 g/dL (12.0-16.0); Mean Corp Hgb Conc. 30.7 g/dL (33.0-37.0); Mean Corpuscular Volume 69.4 fL (81.0-99.0); Nucleated Red Blood Cells % 0 %; Platelet Count 474 10^3/uL (130-400); Red Cell Dist. Width 19.6 % (11.5-14.5)
[2025-03-13 13:01] LABS: ALT (SGPT) 24 U/L (0-35); AST (SGOT) 20 U/L (14-36); Albumin 3.9 g/dl (3.5-5.0); Alkaline Phosphatase 84 U/L (38-126); Blood Urea Nitrogen 8 mg/dl (7-17); Calcium 9.6 mg/dl (8.4-10.2); Carbon Dioxide 23 mmol/L (22-30); Chloride 108 mmol/L (98-107); Glucose 107 mg/dl (70-99); Potassium 4.4 mmol/L (3.5-5.1); Sodium 136 mmol/L (135-145); Total Protein 7.4 g/dl (6.3-8.2); eGFR > 60.00
[2025-03-13 14:10] LABS: Glycohemoglobin (HgbA1c) 6.3 % (4.0-5.9)
== END ==
LOC: REG 10:22
PROVIDERS: ATTENDING PHYSICIAN Family Medicine
DX: E11.40 Type 2 diabetes mellitus with diabetic neuropathy, unspecified (principal); M60.19 Interstitial myositis, multiple sites
CPT/HCPCS: 36415; 80053; 82550; 83036; 85025; 85652